=== PATIENT | male | born 1985 | race Caucasian/White ===

== ENCOUNTER 2023-12-25 16:30 | Inpatient (IN) | payer OTHER ==
[2023-12-25 19:05] VITALS: BMI 29.4
[2023-12-25] MEDS ORDERED: MAGNESIUM HYDROX 2400MG/30ML ORAL SUSPENSION 30 ML CUP PO PRN (19:46)
[2023-12-25] MEDS ORDERED: BISMUTH SUBSALICYLATE 524 MG/30 ML PO PRN (19:46)
[2023-12-25] MEDS ORDERED: NALOXONE HCL 0.4 MG/ML VIAL IM PRN (19:46)
[2023-12-25] MEDS ORDERED: DICYCLOMINE HCL 10 MG CAPSULE PO PRN (19:46)
[2023-12-25] MEDS ORDERED: chlordiazePOXIDE HCL 25 MG CAPSULE PO PRN (19:46)
[2023-12-25] MEDS ORDERED: guaiFENesin 600 MG TABLET.ER (FP) PO PRN (19:46)
[2023-12-25] MEDS ORDERED: MAG HYDROX/AL HYDROX/SIMETH 30 ML UNIT-DOSE CUP PO PRN (19:46)
[2023-12-25] MEDS ORDERED: IBUPROFEN 600 MG TABLET (FP) PO PRN (19:46)
[2023-12-25] MEDS ORDERED: NALOXONE HCL (KLOXXADO) 8 MG SPRAY NS PRN (19:46)
[2023-12-25] MEDS ORDERED: IBUPROFEN 400 MG TABLET (FP) PO PRN (19:46)
[2023-12-25] MEDS ORDERED: ONDANSETRON *ODT* 4 MG TABLET SL PRN (19:46)
[2023-12-25] MEDS ORDERED: BENZONATATE 200 MG CAPSULE PO PRN (19:46)
[2023-12-25] MEDS ORDERED: ACETAMINOPHEN 325 MG TABLET (FP) PO PRN (19:46)
[2023-12-25] MEDS ORDERED: LOPERAMIDE HCL 2 MG CAPSULE PO PRN (19:46)
[2023-12-25] MEDS ORDERED: POLYETHYLENE GLYCOL (HEALTHYLAX) 3350 17 GM PACKET PO PRN (19:46)
[2023-12-25] MEDS ORDERED: BENZOCAINE/MENTHOL (CHLORASEPTIC ) LOZENGE MM PRN (19:46)
[2023-12-25] MEDS: MELATONIN 5 MG TABLETS PO SCH (22:01)
[2023-12-25] MEDS: THIAMINE 100 MG TABLET PO SCH (22:04)
[2023-12-25] MEDS: chlordiazePOXIDE HCL 25 MG CAPSULE PO SCH (22:05)
[2023-12-25] MEDS: NICOTINE POLACRILEX 4 MG GUM BUC PRN (22:08)
[2023-12-26] MEDS: METHOCARBAMOL 500 MG TABLET PO PRN (05:43)
[2023-12-26] MEDS ORDERED: methaDONE HCL 10 MG TABLET PO ONE (10:11)
[2023-12-26] MEDS: GABAPENTIN 400 MG CAPSULE PO SCH (10:12)
[2023-12-26] MEDS: NICOTINE 14 MG/24 HOURS TOPICAL PATCH TD SCH (10:12)
[2023-12-26] MEDS: PRENATAL VITAMINS W/ FOLIC ACID TABLET (FP) PO SCH (10:12)
[2023-12-26 11:45] LABS: HEMATOCRIT 34.3 % (35.4-49); HEMOGLOBIN 11.6 GM/dL (11.7-16.9); MCH 29.1 pg (25.7-33.7); MCHC 33.9 g/dl (32.0-35.9); MEAN CELL VOLUME 85.7 fl (80-96); MEAN PLT VOLUME 8.1 fl (7.5-11.1); PLATELET COUNT 191 10^3/uL (134-434); RDW 13.6 % (11.9-15.9); WHITE BLOOD COUNT 4.5 K/mm3 (4.0-10.0)
[2023-12-26 11:51] LABS: CHLORIDE 106 mmol/L (98-107); POTASSIUM 4.4 mmol/L (3.5-5.1); SODIUM 138 mmol/L (136-145)
[2023-12-26 11:57] LABS: CALCIUM 9.1 mg/dL (8.5-10.1)
[2023-12-26 11:58] LABS: ALBUMIN 3.3 g/dl (3.4-5.0); ANION GAP 1 mmol/L (4-13); CO2 31 mmol/L (21-32); GLUCOSE,RANDOM 107 mg/dL (74-106)
[2023-12-26 12:01] LABS: CREATININE 0.9 mg/dL (0.55-1.3); SGOT/AST 199 U/L (15-37)
[2023-12-26 12:03] LABS: BILIRUBIN,TOTAL 0.5 mg/dL (0.2-1); TOT PROT 6.6 g/dl (6.4-8.2)
[2023-12-26 12:04] LABS: ALK PHOS 64 U/L (45-117)
[2023-12-26 12:06] LABS: SGPT/ALT 97 U/L (13-61)
[2023-12-26] MEDS: hydrOXYzine PAMOATE 25 MG CAPSULE (FP) PO PRN (14:14)
[2023-12-26] MEDS: QUEtiapine FUMARATE 200 MG TABLET PO SCH (22:17)
[2023-12-27] MEDS: chlordiazePOXIDE HCL 25 MG CAPSULE PO SCH (05:45)
[2023-12-27] MEDS ORDERED: methaDONE HCL 10 MG TABLET PO SCH (06:00)
[2023-12-28] MEDS ORDERED: chlordiazePOXIDE HCL 10 MG CAPSULE PO PRN
[2023-12-28] MEDS: chlordiazePOXIDE HCL 10 MG CAPSULE PO SCH (05:44)
[2023-12-28] MEDS ORDERED: LORazepam 1 MG TABLET PO PRN (09:35)
[2023-12-28] MEDS: LORazepam 1 MG TABLET PO SCH (10:17)
[2023-12-29] MEDS ORDERED: chlordiazePOXIDE HCL 10 MG CAPSULE PO SCH (05:00)
[2023-12-29] MEDS: LORazepam 0.5 MG TABLET PO SCH (05:35)
[2023-12-30] MEDS ORDERED: chlordiazePOXIDE HCL 10 MG CAPSULE PO ONE (05:00)
[2023-12-30] MEDS: LORazepam 0.5 MG TABLET PO ONE (05:36)
[2024-01-01 09:07] VITALS: RESP 18
[2024-01-01 12:53] VITALS: BP 101/64; PULSE 80; TEMP 97.3
== END 2024-01-01 15:00 | disposition other institution (70) | DRG 773 ==
LOC: YASAS 16:30 → Y6N 20:33
PROVIDERS: ADMIT Allergy & Immunology; ATTEND Surgery
PROC: HZ2ZZZZ Detoxification Services for Substance Abuse Treatment (ICD-10-PCS; principal; 2023-12-25)
DX: F10.230 Alcohol dependence with withdrawal, uncomplicated (principal); F13.230 Sedative, hypnotic or anxiolytic dependence with withdrawal, uncomplicated; F11.20 Opioid dependence, uncomplicated; F12.20 Cannabis dependence, uncomplicated; F25.1 Schizoaffective disorder, depressive type; F19.280 Other psychoactive substance dependence with psychoactive substance-induced anxiety disorder; F19.24 Other psychoactive substance dependence with psychoactive substance-induced mood disorder; F19.282 Other psychoactive substance dependence with psychoactive substance-induced sleep disorder; R74.01 Elevation of levels of liver transaminase levels; Z86.19 Personal history of other infectious and parasitic diseases; Z88.8 Allergy status to other drugs, medicaments and biological substances
CPT/HCPCS: 36415; 80053; 80305; 80307; 84450; 84460; 85027; 86780; 87811; 93005; 93010

== ENCOUNTER 2024-01-01 15:10 | Inpatient (IN) | payer OTHER ==
[~2024-01-01 15:10] MED LIST: ACETAMINOPHEN 325 MG TABLET (FP) PO PRN; BENZOCAINE/MENTHOL (CHLORASEPTIC ) LOZENGE MM PRN; BENZONATATE 200 MG CAPSULE PO PRN; LOPERAMIDE HCL 2 MG CAPSULE PO PRN; MAG HYDROX/AL HYDROX/SIMETH 30 ML UNIT-DOSE CUP PO PRN; MAGNESIUM HYDROX 2400MG/30ML ORAL SUSPENSION 30 ML CUP PO PRN; NALOXONE HCL (KLOXXADO) 8 MG SPRAY NS PRN; NALOXONE HCL 0.4 MG/ML VIAL IM PRN; POLYETHYLENE GLYCOL (HEALTHYLAX) 3350 17 GM PACKET PO PRN; guaiFENesin 600 MG TABLET.ER (FP) PO PRN
[2024-01-01] MEDS: GABAPENTIN 400 MG CAPSULE PO SCH (17:08)
[2024-01-01] MEDS: NICOTINE POLACRILEX 2 MG GUM BUC PRN (17:09)
[2024-01-01] MEDS: MELATONIN 5 MG TABLETS PO SCH (21:57)
[2024-01-01] MEDS: THIAMINE 100 MG TABLET PO SCH (21:57)
[2024-01-01] MEDS: QUEtiapine FUMARATE 200 MG TABLET PO SCH (21:57)
[2024-01-01] MEDS: hydrOXYzine PAMOATE 25 MG CAPSULE (FP) PO PRN (21:57)
[2024-01-01] MEDS: ACAMPROSATE CALCIUM 333 MG TABLET.DR PO SCH (21:57)
[2024-01-01] MEDS ORDERED: GABAPENTIN 400 MG CAPSULE PO SCH (22:00)
[2024-01-02] MEDS: NICOTINE 14 MG/24 HOURS TOPICAL PATCH TD SCH (05:16)
[2024-01-02] MEDS ORDERED: methaDONE HCL 10 MG TABLET PO SCH (06:00)
[2024-01-02] MEDS: PRENATAL VITAMINS W/ FOLIC ACID TABLET (FP) PO SCH (09:45)
[2024-01-02] MEDS ORDERED: NICOTINE 14 MG/24 HOURS TOPICAL PATCH TD SCH (10:00)
[2024-01-02] MEDS ORDERED: PATIENT'S OWN MEDICATION (NON-FORMULARY) (Bupropion Hcl [Wellbutrin Xl] 300 MG Tab.Er.24h) PO SCH (10:00)
[2024-01-02] MEDS: IBUPROFEN 600 MG TABLET (FP) PO PRN (15:27)
[2024-01-03] MEDS: NICOTINE POLACRILEX 4 MG GUM BUC PRN (21:32)
[2024-01-04] MEDS: SUVOREXANT 10 MG TABLET PO PRN (21:33)
[2024-01-06] MEDS: NICOTINE 14 MG/24 HOURS TOPICAL PATCH TD PRN (11:54)
[2024-01-06] MEDS: IBUPROFEN 400 MG TABLET (FP) PO PRN (18:17)
[2024-01-08 12:02] LABS: INR 1.1 (0.83-1.09); PROTHROMBIN TIME (PATIENT) 12.4 SEC (9.7-13.0)
[2024-01-09] MEDS: SUVOREXANT 10 MG TABLET PO PRN (21:34)
[2024-01-13] MEDS: SUVOREXANT 10 MG TABLET PO PRN (21:33)
[2024-01-13] MEDS ORDERED: INSULIN (NOVOLOG) ASPART 100 UNITS/ML 10ML VIAL ONE (21:47)
[2024-01-13] MEDS ORDERED: INSULIN (LEVEMIR) 100 UNITS/ML UNITS SQ ONE (21:47)
[2024-01-14] MEDS ORDERED: INSULIN (LEVEMIR) 100 UNITS/ML UNITS SQ ONE (21:56)
[2024-01-14] MEDS ORDERED: INSULIN (NOVOLOG) ASPART 100 UNITS/ML 10ML VIAL ONE (21:56)
[2024-01-15] MEDS: SUVOREXANT 10 MG TABLET PO PRN (21:41)
[2024-01-17 12:52] LABS: POTASSIUM 3.8 mmol/L (3.5-5.1)
[2024-01-17 12:55] LABS: BLOOD UREA NITROGEN 18.4 mg/dL (7-18)
[2024-01-17 12:56] LABS: ALBUMIN 3.9 g/dl (3.4-5.0)
[2024-01-17 13:01] LABS: CALCIUM 8.9 mg/dL (8.5-10.1)
[2024-01-17 13:04] LABS: CREATININE 1.1 mg/dL (0.55-1.3)
[2024-01-17 13:05] LABS: BILIRUBIN,TOTAL 0.3 mg/dL (0.2-1); TOT PROT 7.3 g/dl (6.4-8.2)
[2024-01-19] MEDS: SUVOREXANT 10 MG TABLET PO PRN (21:32)
[2024-01-22 07:30] VITALS: PULSE 88
[2024-01-23 06:30] VITALS: BP 114/70; RESP 20; TEMP 97.6
== END 2024-01-23 09:10 | disposition home or self-care (01) | DRG 772 ==
LOC: YASAS 15:10 → Y3NR 15:11 → Y3E 01-03 13:52
PROVIDERS: ADMIT Allergy & Immunology; ATTEND Psychiatry & Neurology Pain Medicine
PROC: HZ42ZZZ Group Counseling for Substance Abuse Treatment, Cognitive-Behavioral (ICD-10-PCS; principal; 2024-01-01)
DX: F13.20 Sedative, hypnotic or anxiolytic dependence, uncomplicated (principal); F11.20 Opioid dependence, uncomplicated; F10.20 Alcohol dependence, uncomplicated; F12.10 Cannabis abuse, uncomplicated; F17.210 Nicotine dependence, cigarettes, uncomplicated; F25.1 Schizoaffective disorder, depressive type; Z86.69 Personal history of other diseases of the nervous system and sense organs; Z59.00 Homelessness unspecified
CPT/HCPCS: 36415; 80053; 82140; 82652; 83735; 85610; 86803; 87811